=== PATIENT | female | born 1970 | race Caucasian/White ===

== ENCOUNTER 2017-01-17 18:59 | Emergency (ER) | payer OTHER ==
[~2017-01-17] VITALS: Ht 157.5 cm; Wt 57.4 kg
[2017-01-17 19:00] VITALS: BP 137/73
[2017-01-17 19:58] LABS: HEMATOCRIT 41.8 % (34.6-47.8); HEMOGLOBIN 14.1 g/dL (11.7-16.4); WHITE BLOOD COUNT 6.4 x10^3/uL (3.4-10)
[2017-01-17 20:08] LABS: BLOOD UREA NITROGEN 10 mg/dL (7-18)
== END 2017-01-17 22:11 | disposition home or self-care (01) ==
LOC: ED 21:50
DX: H91.91 Unspecified hearing loss, right ear (principal); G43.909 Migraine, unspecified, not intractable, without status migrainosus; Z87.891 Personal history of nicotine dependence; Z86.73 Personal history of transient ischemic attack (TIA), and cerebral infarction without residual deficits
CPT/HCPCS: 36415; 70450; 80048; 82040; 85025; 93005; 99285